=== PATIENT | female | born 1955 | race Caucasian/White ===

== ENCOUNTER 2016-07-04 11:49 | Emergency (ER) | payer OTHER ==
[~2016-07-04] VITALS: Ht 165.1 cm; Wt 70.0 kg
[~2016-07-04 11:49] MED LIST: CYCL-36 PO; DIFL150T PO; PREM.625 PO; ULTR50TA PO; VALA1TAB PO
[2016-07-04] MEDS ORDERED: TRAM50TA PO (11:56)
[2016-07-04] MEDS ORDERED: PREM0.3T2 PO (11:56)
[2016-07-04 11:58] VITALS: BP 146/87; PULSE 98; RESP 16; TEMP 99; O2SAT 99
[2016-07-04] MEDS ORDERED: ACYC400T PO (11:58)
--- NOTE | 2016-07-04 12:23 | PD ---
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 She was double gloved. She washed her hands and poured alcohol over the exposed skin immediately afterwards. Reports being up-to-date on tetanus and hepatitis B vaccinations. Reports HIV and hepatitis C status is negative. Source patient is HIV positive. No known allergies. No other modifying factors or associated signs and symptoms. PFSH Social History Tobacco Use: No Allergies-Medications (Allergen,Severity, Reaction): Coded Allergies: No Known Allergies (Unverified , 07/04/16) Reported Meds & Prescriptions Reported Meds & Active Scripts Active Zofran Odt (Ondansetron Odt) 4 Mg Tab 4 Mg SL Q8HR PRN Kaletra (Lopinavir/Ritonavir) 200-50 Mg Tab 2 Tab PO BID 23 Days Fill this 5 day prescription first & begin taking Kaletra 12 hours after the first dose received in the Emergency Department as prescribed. Zidovudine 100 Mg Cap 300 Mg PO BID 23 Days Lamivudine 150 Mg Tab 150 Mg PO BID 23 Days Kaletra (Lopinavir/Ritonavir) 200-50 Mg Tab 2 Tab PO BID 5 Days Fill this 5 day prescription first & begin taking Kaletra 12 hours after the first dose received in the Emergency Department as prescribed. Retrovir (Zidovudine) 100 Mg Cap 300 Mg PO BID 5 Days *Fill this prescription for a 23 day supply of Retrovir ONLY if advised to do so by either Employee Health OR the Emergency Department.* Epivir (Lamivudine) 150 Mg Tab 150 Mg PO BID 5 Days *Fill this 5 day prescription first and begin taking Epivir 12 hours after the first dose received in the Emergency Department as prescribed.* Reported Acyclovir 400 Mg Tab 400 Mg PO DAILY Tramadol (Tramadol HCl) 50 Mg Tab 50 Mg PO Q6H PRN Prempro Blister Pack (Estrogens Conj/Medroxyprogest Acet) 0.3-1.5 Mg Tab 1 Tab PO DAILY Review of Systems Except as stated in HPI: all other systems reviewed are Neg Physical Exam Narrative GENERAL: Well-nourished, well-developed female patient, in no acute distress SKIN: Warm and dry. Point, puncture wound to proximal aspect of left hand fourth and fifth digits; no erythema, no edema, no drainage. HEAD: Atraumatic. Normocephalic. EYES: Pupils equal and round. No scleral icterus. No injection or drainage. ENT: Mucosa pink and moist. Airway patent. NECK: Trachea midline. CARDIOVASCULAR: Regular rate. RESPIRATORY: No accessory muscle use. GASTROINTESTINAL: Flat. MUSCULOSKELETAL: No obvious deformities. No clubbing. No cyanosis. No edema. NEUROLOGICAL: Awake and alert. Oriented 3. No obvious cranial nerve deficits. Motor grossly within normal limits. Normal speech. PSYCHIATRIC: Appropriate mood and affect; insight and judgment normal. Data Data Last Documented VS Vital Signs Date Time Temp Pulse Resp B/P Pulse Ox O2 Delivery O2 Flow Rate FiO2 07/04/16 11:58 99.0 98 16 146/87 99 Orders Lamivudine (Epivir) (07/04/16 12:45) Zidovudine (Retrovir) (07/04/16 12:45) Lopinavir-Ritonavir 200-50 Mg (Kaletra 2 (07/04/16 12:45) Ondansetron Odt (Zofran Odt) (07/04/16 12:45) MDM Medical Decision Making Medical Screen Exam Complete: Yes Emergency Medical Condition: Yes Medical Record Reviewed: Yes Differential Diagnosis HIV exposure, employee exposure to blood, needlestick Narrative Course 60-year-old female, employee of [employer], with HIV exposure from a dirty needle stick while assisting in the OR. Patient reports being HIV and hepatitis C negative. She reports being up-to-date on her tetanus and hepatitis B vaccinations. Post exposure prophylaxis initiated. BARRY Stovall, from [employer] came down to bedside and spoke with the patient and myself. Instructed patient to follow up with [employer] [facility] and primary care provider. Patient instructed to follow-up with Dr. Luz, HIV specialist. Antiretrovirals administered in ER as per PEP protocol. Antiretrovirals prescribed for home as per PEP protocol. Patient is medically cleared and stable for discharge. Discussed reasons to return to the emergency department. Instructed patient to follow up with primary care provider. Patient agrees with treatment plan. The patients vital signs are stable and the patient is stable for outpatient follow- up and treatment. Patient discharged home, stable and in no acute distress. Diagnosis Primary Impression: Employee exposure to blood Additional Impression: HIV exposure from tainted blood Referrals: Employ [employer] Primary Care Physician Patient Instructions: General Instructions, Postexposure Prophylaxis (ED) Departure Forms: Tests/Procedures, Work Release Enter return to work date: Jul 05, 2016 Additional Instructions: Follow blood exposure protocol instructions Follow-up with employee health Follow-up with primary care Follow-up with Dr. Albright Return to emergency department for worsening of symptoms Med/Other Pt SpecificInfo: Prescription(s) given Scripts Ondansetron Odt (Zofran Odt)4 Mg Tab4 Mg SL Q8HR PRN (Nausea/Vomiting) #30 TAB Ref 1 Prov:Radha Guillory Janny CURRAN 07/04/16 Lopinavir-Ritonavir (Kaletra)200-50 Mg Tab2 Tab PO BID 23 Days Ref 0 Fill this 5 day prescription first & begin taking Kaletra 12 hours after the first dose received in the Emergency Department as prescribed. Prov:Sunita Guilloryyokasta LAWSONP 07/04/16 Zidovudine 100 Mg [id number] Mg PO BID 23 Days Ref 0 Prov:Sunita Guilloryyokasta LAWSONP 07/04/16 Lamivudine 150 Mg [id number] Mg PO BID 23 Days Ref 0 Prov:Radha Guillory Janny CURRAN 07/04/16 Lopinavir-Ritonavir (Kaletra)200-50 Mg Tab2 Tab PO BID 5 Days Ref 0 Fill this 5 day prescription first & begin taking Kaletra 12 hours after the first dose received in the Emergency Department as prescribed. Prov:Radha Guillory Janny CURRAN 07/04/16 Zidovudine (Retrovir)100 Mg [id number] Mg PO BID 5 Days Ref 0 *Fill this prescription for a 23 day supply of Retrovir ONLY if advised to do so by either Employee Health OR the Emergency Department.* Prov:Radha Guillory Janny CURRAN 07/04/16 Lamivudine (Epivir)150 Mg [id number] Mg PO BID 5 Days Ref 0 *Fill this 5 day prescription first and begin taking Epivir 12 hours after the first dose received in the Emergency Department as prescribed.* Prov:KahlilRadha CURRAN 07/04/16 Disposition: 01 DISCHARGE HOME Condition: Stable Sunita Guilloryyokasta CURRAN Jul 04, 2016 12:23
[2016-07-04] MEDS ORDERED: ONDANSETRON ODT 4 MG TAB PO ONE (12:45)
[2016-07-04] MEDS ORDERED: LOPINAVIR/RITONAVIR 200 MG/50 MG TAB PO ONE (12:45)
[2016-07-04] MEDS ORDERED: ZIDOVUDINE 100 MG CAP PO SCH (12:45)
[2016-07-04] MEDS ORDERED: LAMI1TAB7 PO (13:01)
[2016-07-04] MEDS ORDERED: RETR100C PO (13:01)
[2016-07-04] MEDS ORDERED: ZOFR4TAB3 SL (13:01)
[2016-07-04] MEDS ORDERED: LAMI150 PO (13:01)
[2016-07-04] MEDS ORDERED: ZIDO100C4 PO (13:01)
[2016-07-04] MEDS ORDERED: KALETRA200 PO (13:01)
== END 2016-07-04 13:50 | disposition home or self-care (01) ==
LOC: NEPB 11:49
DX: S61.235A Puncture wound without foreign body of left ring finger without damage to nail, initial encounter (principal); S61.237A Puncture wound without foreign body of left little finger without damage to nail, initial encounter; Z20.6 Contact with and (suspected) exposure to human immunodeficiency virus [HIV]; Z79.899 Other long term (current) drug therapy; W46.0XXA Contact with hypodermic needle, initial encounter; Y93.F9 Activity, other caregiving; Y92.234 Operating room of hospital as the place of occurrence of the external cause; Y99.0 Civilian activity done for income or pay
CPT/HCPCS: 99283

== ENCOUNTER → 2016-07-18 | Outpatient (CLI) | payer OTHER ==
[~2016-07-18] MED LIST changes: +ACYC400T PO; -CYCL-36 PO; -DIFL150T PO; +KALETRA200 PO; +LAMI150 PO; +LAMI1TAB7 PO; -PREM.625 PO; +PREM0.3T2 PO; +RETR100C PO; +TRAM50TA PO; -ULTR50TA PO; -VALA1TAB PO; +ZIDO100C4 PO; +ZOFR4TAB3 SL
[2016-07-18 13:49] LABS: HEMATOCRIT 40.7 % (35.0-46.0); MEAN CELL VOLUME 96.9 FL (80.0-100.0); MEAN CORPUSCULAR HEMOGLOBIN 33.1 PG (27.0-34.0); MEAN CORPUSCULAR HGB CONC 34.2 % (32.0-36.0); PLATELET COUNT 276 TH/MM3 (150-450); RED CELL DISTRIBUTION WIDTH 12.7 % (11.6-17.2); REVIEW FLAG FINAL; WHITE BLOOD COUNT 6.4 TH/MM3 (4.0-11.0)
[2016-07-18 14:21] LABS: BICARBONATE 25.6 MEQ/L (21.0-32.0); INDIRECT BILIRUBIN 0.6 MG/DL (0.0-0.8); POTASSIUM 3.6 MEQ/L (3.5-5.1); TOTAL BILIRUBIN ADULT 0.8 MG/DL (0.2-1.0)
== END ==
LOC: CLAB 13:30
PROVIDERS: ATTEND Specialist
DX: T14.90 Injury, unspecified (principal); W46.1XXD Contact with contaminated hypodermic needle, subsequent encounter
CPT/HCPCS: 36415; 80048; 80076; 85027

== ENCOUNTER → 2016-07-27 | Outpatient (CLI) | payer OTHER ==
[2016-07-27 10:41] LABS: HEMATOCRIT 38.5 % (35.0-46.0); MEAN CELL VOLUME 97.3 FL (80.0-100.0); MEAN CORPUSCULAR HEMOGLOBIN 33.5 PG (27.0-34.0); MEAN CORPUSCULAR HGB CONC 34.4 % (32.0-36.0); PLATELET COUNT 279 TH/MM3 (150-450); RED BLOOD COUNT 3.96 MIL/MM3 (4.00-5.30); RED CELL DISTRIBUTION WIDTH 13.2 % (11.6-17.2); REVIEW FLAG FINAL; WHITE BLOOD COUNT 4.1 TH/MM3 (4.0-11.0)
== END ==
LOC: CLAB 10:20
PROVIDERS: ATTEND Specialist
DX: T14.8 Other injury of unspecified body region (principal); W46.1XXD Contact with contaminated hypodermic needle, subsequent encounter
CPT/HCPCS: 36415; 85027

== ENCOUNTER → 2016-08-15 | Outpatient (CLI) | payer OTHER | LOC: CLAB 12:13 | PROVIDERS: ATTEND Specialist | DX: Z20.6 Contact with and (suspected) exposure to human immunodeficiency virus [HIV] (principal); W46.1XXD Contact with contaminated hypodermic needle, subsequent encounter | CPT/HCPCS: 36415; 86703; 86803 ==

== ENCOUNTER → 2016-08-29 | Outpatient (CLI) | payer OTHER ==
[2016-09-01 23:54] LABS: HIV RNA COPIES LESS THAN 20.0 (()); HIV RNA LOG COPIES LESS THAN 1.30 (())
== END ==
LOC: CLAB 14:43
PROVIDERS: ATTEND Specialist
DX: Z20.6 Contact with and (suspected) exposure to human immunodeficiency virus [HIV] (principal); W46.1XXD Contact with contaminated hypodermic needle, subsequent encounter
CPT/HCPCS: 36415; 87536

== ENCOUNTER → 2016-10-13 | Outpatient (CLI) | payer OTHER | LOC: CLAB 12:57 | PROVIDERS: ATTEND Specialist | DX: Z01.89 Encounter for other specified special examinations (principal) | CPT/HCPCS: 36415; 86803 ==

== ENCOUNTER → 2017-01-04 | Outpatient (CLI) | payer OTHER ==
[~2017-01-04] MED LIST changes: +FLUC150T PO; +PREM.625 PO
[2017-01-04 14:54] LABS: MEAN CELL VOLUME 97.2 FL (80.0-100.0); MEAN CORPUSCULAR HGB CONC 33.9 % (32.0-36.0); PLATELET COUNT 245 TH/MM3 (150-450); RED BLOOD COUNT 4.43 MIL/MM3 (4.00-5.30); RED CELL DISTRIBUTION WIDTH 12.9 % (11.6-17.2); REVIEW FLAG FINAL; WHITE BLOOD COUNT 5.1 TH/MM3 (4.0-11.0)
[2017-01-04 15:19] LABS: BICARBONATE 29.3 MEQ/L (21.0-32.0); POTASSIUM 3.9 MEQ/L (3.5-5.1)
== END ==
LOC: CLAB 14:20
PROVIDERS: ATTEND Specialist
DX: R79.9 Abnormal finding of blood chemistry, unspecified (principal); W46.1XXD Contact with contaminated hypodermic needle, subsequent encounter; Z79.899 Other long term (current) drug therapy
CPT/HCPCS: 36415; 80048; 85027; 86803